=== PATIENT | male | born 1975 | race Caucasian/White ===

== ENCOUNTER 2017-09-15 05:30 | Emergency (ER) | payer SELFPAY ==
[~2017-09-15] VITALS: Ht 175.3 cm; Wt 90.8 kg
[2017-09-15] MEDS ORDERED: ONDANSETRON 2MG/ML, 2ML IVPush ONE (07:00)
[2017-09-15] MEDS ORDERED: HYDROmorphone 1 MG/ML, 1ML IVPush PRN (07:00)
[2017-09-15] MEDS ORDERED: SODIUM CHLORIDE 0.9% 1,000ML IVBOLUS ONE (07:00)
[2017-09-15] MEDS ORDERED: SODIUM CHLORIDE FLUSH 10ML SYR IVF ONE (07:00)
[2017-09-15] MEDS ORDERED: HYDROmorphone 2 MG/ML, 1ML ONE (07:20)
[2017-09-15] MEDS ORDERED: ONDANSETRON 2MG/ML, 2ML ONE (07:20)
[2017-09-15 07:25] LABS: BLOOD UREA NITROGEN 17 mg/dL (7-18); HEMATOCRIT 51.5 % (39.2-51.8); HEMOGLOBIN 17.4 g/dL (13.7-18.0); WHITE BLOOD COUNT 8.1 x10^3/uL (3.4-10)
[2017-09-15 07:31] LABS: ASPARTATE AMINO TRANSFERASE 25 U/L (15-37)
[2017-09-15 07:32] VITALS: BP 128/75
[2017-09-15] MEDS ORDERED: OMNIPAQUE 350 MG/ML, 100ML BOTTLE ONE (07:55)
== END 2017-09-15 09:11 | disposition home or self-care (01) ==
LOC: ED 09:00
DX: M51.26 Other intervertebral disc displacement, lumbar region (principal); R10.31 Right lower quadrant pain; R05 Cough
CPT/HCPCS: 36415; 71010; 74177; 80053; 81003; 83605; 83690; 85025; 96361; 96374; 99285; J2405; J7030; Q9967